=== PATIENT | female | born 1945 | race Caucasian/White ===

== ENCOUNTER → 2022-10-12 | Outpatient (CLI) | payer MEDICARE ==
[~2022-10-12] MED LIST: BISO1TAB41; EZET10TA5; REGADENOSON 0.4 MG/5 ML SYR (LEXISCAN) IV ONE
[2022-10-12] MEDS: CATHETER FLUSH 10 ML SYR IVP PRN ×2 (07:17→08:54)
[2022-10-12 08:54] VITALS: BP 124/51
--- NOTE | 2022-10-13 07:17 | Cardiology Stress Test Report ---
Stress Test Report Date of Procedure/Referring: Date of Procedure: Oct 12, 2022 PCP No,Local Physician Admitting Physician Admitting Physician: Attending Physician: Kannan Whipple MD Baseline Heart Rate: 57 Baseline Blood Pressure: Blood Pressure Systolic: 124 Blood Pressure Diastolic: 51 Baseline Vitals Vital Signs Date Time Temp Pulse Resp B/P (MAP) Pulse Ox O2 Delivery O2 Flow Rate FiO2 10/12/22 08:54 52 124/51 (75) 91 Baseline EKG: Baseline EKG: NSR Summary After explaining the procedure to the patient, she signed a consent and then brought to the stress nuclear laboratory. Patient received 0.4 mg Lexiscan for stress test, ECG, heart rate and blood pressure were monitored continuously. Resting and stress dose of radio tracer were injected, imaging was acquired and reviewed in short axis, horizontal long axis and vertical long axis views. TID: 1.03 SSS: 2 SDS: 2 EF: 68 Patient tolerated Lexiscan well Breast attenuation with typical female pattern, no significant ischemia or infarction noted on SPECT images Normal left ventricular size, ejection fraction 68% KANNAN WHIPPLE MD Oct 13, 2022 07:17
== END ==
LOC: CARD 06:44
PROVIDERS: ATTEND Internal Medicine Cardiovascular Disease
DX: I10 Essential (primary) hypertension (principal); I25.10 Atherosclerotic heart disease of native coronary artery without angina pectoris
CPT/HCPCS: 78452; 93017; A9502